=== PATIENT | female | born 1955 | race Caucasian/White ===

== ENCOUNTER 2024-10-09 13:31 | Emergency (ER) | payer BC ==
[2024-10-09 13:44] LABS: BASOPHILS ABSOLUTE AUTO 0.1 x10-3/uL (0.0-0.1); BASOPHILS PERCENT AUTO 0.9 % (0.2-1.5); EOSINOPHILS ABSOLUTE AUTO 0.2 x10-3/uL (0.0-0.8); EOSINOPHILS PERCENT AUTO 1.8 % (0.6-8.1); HEMATOCRIT 42.1 % (34.2-48.2); HEMOGLOBIN 14.4 g/dL (11.4-15.5); LYMPHOCYTES ABSOLUTE AUTO 1.7 x10-3/uL (1.0-4.4); LYMPHOCYTES PERCENT AUTO 19.5 % (18.4-52.1); MEAN CORPUSCULAR HEMOGLOBIN 30.2 pg (23.9-33.9); MEAN CORPUSCULAR HGB CONC 34.2 g/dL (31.9-34.8); MEAN CORPUSCULAR VOLUME 88.2 fL (76.7-100.5); MEAN PLATELET VOLUME 9.5 fL (7.1-12.4); MONOCYTES ABSOLUTE AUTO 0.9 x10-3/uL (0.3-1.0); MONOCYTES PERCENT AUTO 10.5 % (4.4-15.7); NEUTROPHILS ABSOLUTE AUTO 5.8 x10-3/uL (1.5-6.3); NEUTROPHILS PERCENT AUTO 67.3 % (30.8-76.2); PLATELET COUNT,PLT 195 x10(3)uL (151-488); RED BLOOD CELL COUNT 4.78 x10(6)uL (3.60-5.20); RED CELL DISTRIBUTION WIDTH 13.9 % (12.3-16.5); WHITE BLOOD CELL COUNT,WBC 8.7 x10-3/uL (3.0-10.3)
[2024-10-09 13:50] LABS: BLOOD UREA NITROGEN,BUN 15 mg/dL (7-18); BUN/CREATININE RATIO 12.5 (9-20); CALCIUM 9.6 mg/dL (8.6-10.2); CARBON DIOXIDE,CO2 26 mmol/L (21-32); CHLORIDE,CL 103 mmol/L (100-110); CREATININE 1.2 mg/dL (0.55-1.02); ESTIMATED GFR 50 mL/min (>60); GLUCOSE RANDOM 193 mg/dL (80-116); POTASSIUM,K 3.9 mmol/L (3.5-5.3); SODIUM,NA 137 mmol/L (135-145)
[2024-10-09 13:56] LABS: A/G RATIO 1.2; ALANINE AMINOTRANSFERASE,ALT 40 U/L (12-36); ALBUMIN 4.2 g/dL (3.2-4.6); ALKALINE PHOSPHATASE 106 IU/L (56-112); ASPARTATE AMNIOTRANSFERASE,AST 21 IU/L (5-25); BILIRUBIN TOTAL 0.8 mg/dL (0.1-1.3); PROTEIN TOTAL,TP 7.8 g/dL (6.0-8.0)
[2024-10-09 14:04] LABS: C-REACTIVE PROTEIN <0.50 mg/dL (<0.50); PRO B-TYPE NATRIUR PEPT,BNPPRO 834 pg/mL (<=125); TROPONIN I 5.4 pg/mL (4.0-60.3)
[2024-10-09 14:16] LABS: BASE EXCESS VENOUS,POC -1 mmol/L (-2 - 3+); PCO2 VENOUS,POC 39 mmHg (41-51); PH VENOUS,POC 7.39 pH Units (7.32-7.43)
[2024-10-09 14:47] VITALS: PULSE 71
[2024-10-09] MEDS: Iopamidol 755 Mg/ML 100 ML Bottle IV SCH (14:50)
[2024-10-09 15:13] LABS: BILIRUBIN,URINE NEGATIVE (NEGATIVE); GLUCOSE,URINE NORMAL (NORMAL); KETONES,URINE NEGATIVE (NEGATIVE); LEUKOCYTE ESTERASE,URINE NEGATIVE (NEGATIVE); NITRITE,URINE NEGATIVE (NEGATIVE); OCCULT BLOOD,URINE NEGATIVE (NEGATIVE); PROTEIN,URINE NEGATIVE (NEGATIVE); UROBILINOGEN,URINE NORMAL (NEGATIVE)
[2024-10-09 15:18] LABS: APPEARANCE,URINE CLEAR (CLEAR); BACTERIA,URINE OCCASIONAL (NS); COLOR,URINE YELLOW (YELLOW); RBC,URINE 0-5 (0-5); SQUAMOUS EPITHELIAL CELLS,UR OCCASIONAL (NS,R,O); WBC,URINE 0-5 (0-5)
[2024-10-09] MEDS: Heparin Sodium 5,000 Units/ML Vial IVPUSH ONE (15:48)
[2024-10-09] MEDS: Sodium Chloride 0.9% 10 ML Syringe FLUSH PRN (15:49)
[2024-10-09] MEDS: Heparin Sodium/0.45% NaCl 25,000 UNITS/500 ML BAG IV SCH (16:23)
[2024-10-09 18:07] VITALS: BP 177/82
== END 2024-10-09 16:50 | disposition other institution (70) ==
LOC: FB.ED 13:31
DX: I26.99 Other pulmonary embolism without acute cor pulmonale (principal); R00.8 Other abnormalities of heart beat; Z79.82 Long term (current) use of aspirin; Z79.899 Other long term (current) drug therapy
CPT/HCPCS: 36415; 71275; 80053; 81001; 83880; 84443; 84484; 85025; 85379; 85730; 86140; 93005; 96365; 99285; J1644; Q9967

== ENCOUNTER 2024-11-01 12:13 | Emergency (ER) | payer BC ==
[2024-11-01 12:58] LABS: BASOPHILS ABSOLUTE AUTO 0.1 x10-3/uL (0.0-0.1); BASOPHILS PERCENT AUTO 0.7 % (0.2-1.5); EOSINOPHILS ABSOLUTE AUTO 0.1 x10-3/uL (0.0-0.8); EOSINOPHILS PERCENT AUTO 2.1 % (0.6-8.1); HEMATOCRIT 42.5 % (34.2-48.2); HEMOGLOBIN 14.5 g/dL (11.4-15.5); LYMPHOCYTES ABSOLUTE AUTO 1.1 x10-3/uL (1.0-4.4); LYMPHOCYTES PERCENT AUTO 16.1 % (18.4-52.1); MEAN CORPUSCULAR HEMOGLOBIN 29.5 pg (23.9-33.9); MEAN CORPUSCULAR HGB CONC 34.3 g/dL (31.9-34.8); MEAN CORPUSCULAR VOLUME 86.1 fL (76.7-100.5); MEAN PLATELET VOLUME 8.9 fL (7.1-12.4); MONOCYTES ABSOLUTE AUTO 0.7 x10-3/uL (0.3-1.0); MONOCYTES PERCENT AUTO 10.1 % (4.4-15.7); PLATELET COUNT,PLT 201 x10(3)uL (151-488); RED BLOOD CELL COUNT 4.93 x10(6)uL (3.60-5.20); RED CELL DISTRIBUTION WIDTH 13.6 % (12.3-16.5)
[2024-11-01 13:01] LABS: BLOOD UREA NITROGEN,BUN 11 mg/dL (7-18); CARBON DIOXIDE,CO2 27 mmol/L (21-32); CHLORIDE,CL 104 mmol/L (100-110); CREATININE 1.1 mg/dL (0.55-1.02); EST CRCL DRUG DOSING (CG) 48.26 mL/min; ESTIMATED GFR 55 mL/min (>60); GLUCOSE RANDOM 188 mg/dL (80-116); POTASSIUM,K 3.9 mmol/L (3.5-5.3); SODIUM,NA 139 mmol/L (135-145)
[2024-11-01 13:07] LABS: A/G RATIO 1.2; ALANINE AMINOTRANSFERASE,ALT 42 U/L (12-36); ALKALINE PHOSPHATASE 86 IU/L (56-112); ASPARTATE AMNIOTRANSFERASE,AST 21 IU/L (5-25); BILIRUBIN TOTAL 0.6 mg/dL (0.1-1.3); PROTEIN TOTAL,TP 7.4 g/dL (6.0-8.0)
[2024-11-01 13:26] VITALS: BP 168/89; PULSE 72
== END 2024-11-01 13:26 | disposition home or self-care (01) ==
LOC: FB.ED 12:13
DX: R00.1 Bradycardia, unspecified (principal); Z88.8 Allergy status to other drugs, medicaments and biological substances; Z79.82 Long term (current) use of aspirin; Z79.899 Other long term (current) drug therapy
CPT/HCPCS: 36415; 71045; 80053; 84484; 85025; 93005; 99284